=== PATIENT | female | born 1995 | race Caucasian/White ===

== ENCOUNTER 2020-06-23 14:17 | Emergency (ER) | payer BC, SELFPAY ==
[2020-06-23 14:23] VITALS: BP 131/73; PULSE 88; RESP 18; TEMP 36.8; O2SAT 96; BMI 19.3
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
--- NOTE | 2020-06-23 16:13 | PC.NURSE ---
PATIENT UP AMBULATING TO BATHROOM, NORMAL STEADY GAIT NOTED.
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
[2020-06-23] MEDS: azithromycin 250 mg Tablet 1000 MG PO (16:49)
[2020-06-23] MEDS: metroNIDAZOLE 500 MG Tablet 2000 MG PO (16:49)
[2020-06-23] MEDS: ondansetron 4 MG Tablet PO (16:50)
--- NOTE | 2020-06-23 16:50 | PC.NURSE ---
Pt to CT
--- NOTE | 2020-06-23 17:00 | PC.NURSE ---
Pt back to [facility] from CT
[2020-06-23 17:17] VITALS: BP 134/93; PULSE 82; RESP 16; O2SAT 99
[2020-06-23 18:44] LABS: HIV 1 & 2 Antibody Non-Reactive (Non-Reactiv); HIV 1 & 2 Antigen Non-Reactive (Non-Reactiv)
[2020-06-23 18:51] LABS: Hepatitis A Antibody IgM Non-Reactive (Nonreactive); Hepatitis B Core AB, Total Non-Reactive (Nonreactive); Hepatitis B Surface AB 14.3 (0-8.5); Hepatitis B Surface Antigen Non-Reactive (Nonreactive); Hepatitis C Virus Antibody Non-Reactive (Nonreactive)
[2020-06-23 19:26] LABS: Rapid Plasma Reagin Syphilis Nonreactive (Nonreactive)
== END 2020-06-23 17:33 | disposition home or self-care (01) ==
PROVIDERS: Emergency Provider Nurse Practitioner Family
DX: S09.90XA Unspecified injury of head, initial encounter (principal); Z20.2 Contact with and (suspected) exposure to infections with a predominantly sexual mode of transmission; Y04.8XXA Assault by other bodily force, initial encounter
CPT/HCPCS: 12345; 36415; 70450; 86592; 86705; 86706; 86709; 86803; 87340; 87806; 99282; 99283; Q0144; Q0162